=== PATIENT | female | born 1940 | race Native Hawaiian/Other Pacific Islander ===

== ENCOUNTER → 2016-11-06 | Outpatient (CLI) | payer OTHER, MEDICAID | LOC: BHFA 09:00 | PROVIDERS: ATTEND Internal Medicine Cardiovascular Disease | DX: I25.10 Atherosclerotic heart disease of native coronary artery without angina pectoris (principal); I10 Essential (primary) hypertension | CPT/HCPCS: 78452; 93017; A9500 ==

== ENCOUNTER 2016-12-31 08:00 | Inpatient (IN) | payer OTHER, MEDICAID ==
[~2016-12-31 08:00] MED LIST: ceFAZolin 2 GM/DEXTROSE 100 ML IV ONE
[2016-12-31] MEDS ORDERED: BUPIVACAINE 0.5% 30 ML SDV ONE (08:22)
[2016-12-31] MEDS ORDERED: THROMBIN (RECOMBINANT) 20,000 UNIT SPRAY TP ONE (08:22)
[2016-12-31] MEDS ORDERED: SKIN ADHESIVE (DERMABOND) 1 EACH TP ONE (08:22)
[2016-12-31] MEDS ORDERED: LIDOCAINE 1% 5 ML SDV ID PRN (08:38)
[2016-12-31] MEDS ORDERED: LR 1,000 ML IV ONE (08:38)
[2016-12-31] MEDS ORDERED: LIDOCAINE 1% 2 ML INJ ONE (09:30)
[2016-12-31] MEDS ORDERED: CEFAZOLIN 2 GM/DEXTROSE/100 ML BAG IV ONE (09:30)
[2016-12-31] MEDS ORDERED: MIDAZOLAM 2 MG/2 ML VIAL ONE (09:55)
[2016-12-31] MEDS ORDERED: REMIFENTANIL HCL 1 MG VIAL ONE (09:55)
[2016-12-31] MEDS ORDERED: DEXAMETHASONE 4 MG/ML VIAL ONE ×2 (09:56)
[2016-12-31] MEDS ORDERED: PROPOFOL/EMULSION 500 MG/50 ML BOTTLE IV ONE (09:56)
[2016-12-31] MEDS ORDERED: LIDOCAINE 2% 100 MG/5 ML SYR ONE (09:56)
[2016-12-31] MEDS ORDERED: HEPARIN 10,000 UNIT/10 ML MDV ONE (09:56)
[2016-12-31] MEDS ORDERED: fentaNYL 100 MCG/2 ML INJ ONE ×2 (09:56→12:00)
[2016-12-31] MEDS ORDERED: ROCURONIUM 50 MG/5 ML VIAL ONE (09:56)
[2016-12-31] MEDS ORDERED: PHENYLEPHRINE 10 MG/ML SDV ONE (09:58)
[2016-12-31] MEDS ORDERED: LABETALOL HCL 5 MG/ML 20 ML MDV ONE (10:09)
[2016-12-31] MEDS ORDERED: PROTAMINE SULFATE 50 MG/5 ML VIAL IVP ONE (11:25)
[2016-12-31] MEDS ORDERED: ONDANSETRON 4 MG/2 ML VIAL IVP PRN (12:17)
[2016-12-31] MEDS ORDERED: NALOXONE HCL 0.4 MG/ML INJ IVP PRN (12:17)
[2016-12-31] MEDS ORDERED: OXYCODONE/APAP 5/325 TAB PO PRN (12:17)
--- NOTE | 2016-12-31 12:17 | POSTOPPROG ---
Post Op Note Date of Operation: 12/31/16 Surgeon: Ernesto Luu [place] Representative: Sharon Kelly PA-C, RAISA Lockhart MS, Trent Martin MS Anesthesiologist: Cali Dove MD Anesthesia: GET(General Endotracheal) Pre-op Diagnosis: Carotid stenosis Post-op Diagnosis: same Procedure: Left carotid endarterectomy Findings: tight calcified plaque, no eeg changes, shunt used Inf/Abcess present in the surg proc area at time of surgery?: No EBL: Minimal Complications: none Drains: Other (none) Specimen(s): none
[2016-12-31] MEDS ORDERED: HYDROCODONE/APAP 5/325 TAB PO PRN (12:22)
[2016-12-31] MEDS ORDERED: NS W/ 20 KCl/L 1,000 ML IV SCH (12:30)
[2016-12-31] MEDS ORDERED: D5W 1/2 NS 1,000 ML IV SCH (12:30)
[2016-12-31] MEDS ORDERED: ENALAPRILAT DIHYDRATE 1.25 MG/ML VIAL IVP PRN (14:31)
[2016-12-31] MEDS: amLODIPine BESYLATE 5 MG TAB PO SCH (15:11)
[2016-12-31] MEDS: CARVEDILOL 6.25 MG TAB PO SCH (17:47)
--- NOTE | 2016-12-31 18:56 | SOAPPROG ---
[facility] Progress Note Assessment/Plan: Assessment: POSTOP LEFT CAROTID ENDARTERECTOMY. DOING WELL WITH NO PROBLEMS NEURO EXAM INTACT WOUND OKAY / VITAL SIGNS STABLE Plan: HOME IN THE A.M. 12/31/16 18:54 Objective: Vital Signs Temp Pulse Resp BP Pulse Ox 36.6 C 89 14 120/42 L 96 12/31/16 13:55 12/31/16 18:00 12/31/16 18:00 12/31/16 18:00 12/31/16 18:00 12/30/16 12/31/16 01/01/17 05:59 05:59 05:59 Intake Total 1514 Output Total 1010 Balance 504 ICD10 Worksheet Patient Problems: Problems Problem Status Onset Carotid stenosis, left Acute - ICD10 Problem Qualifiers (1) Carotid stenosis, left
[2016-12-31] MEDS ORDERED: ATORVASTATIN CALCIUM 10 MG TAB PO SCH (21:00)
[2016-12-31] MEDS ORDERED: NON-FORMULARY NEW DRUG (Simvastatin [Zocor] 20 MG) PO SCH (21:00)
[2016-12-31] MEDS: FLUOROMETHOLONE 5 ML OPHT.BTL EACHEYE SCH (21:07)
[2017-01-01 04:05] LABS: HEMATOCRIT 39.8 % (38.0-47.0); HEMOGLOBIN 12.9 g/dL (12.6-16.3)
[2017-01-01 04:40] LABS: ANION GAP 9 mEq/L (8-16); CALCIUM 9.4 mg/dL (8.5-10.4); CARBON DIOXIDE 20 mEq/l (22-31); CHLORIDE 110 mEq/L (97-110); CREATININE 0.5 mg/dL (0.6-1.0); GLOMERULAR FILTRATION RATE > 60; GLUCOSE 145 mg/dL (70-100); POTASSIUM 4.5 mEq/L (3.5-5.2); SODIUM 139 mEq/L (134-144)
[2017-01-01 04:52] VITALS: TEMP 97.8
[2017-01-01] MEDS ORDERED: LEVOTHYROXINE 150 MCG TAB PO SCH (06:00)
[2017-01-01] MEDS: amLODIPine BESYLATE 5 MG TAB PO SCH (08:25)
[2017-01-01] MEDS: CARVEDILOL 6.25 MG TAB PO SCH (08:25)
[2017-01-01] MEDS: FLUOROMETHOLONE 5 ML OPHT.BTL EACHEYE SCH (08:26)
[2017-01-01] MEDS ORDERED: ATORVASTATIN CALCIUM 40 MG TAB PO SCH (09:00)
[2017-01-01] MEDS ORDERED: ASPIRIN 81 MG CHEWABLE TAB PO SCH (09:00)
[2017-01-01] MEDS ORDERED: buPROPion XL 150 MG TAB PO SCH (09:00)
--- NOTE | 2017-01-01 09:00 | GOP ---
[f rep st] OPERATIVE REPORT DATE OF OPERATION: SURGEON: Ernesto Luu MD CAKE PULLER: Sharon Kelly, ENEIDA. ANESTHESIOLOGIST: Dr. Dove. . PREOPERATIVE DIAGNOSIS: Critical left carotid stenosis. POSTOPERATIVE DIAGNOSIS: Critical left carotid stenosis. PROCEDURE PERFORMED: Left carotid endarterectomy with EEG monitoring. Cervical lymph node biopsy. FINDINGS: Patient was found to have a very tight localized stenosis of the origin of the internal carotid artery with a large calcified plaque creating a greater than 80% stenosis. DESCRIPTION OF PROCEDURE: The patient was taken to the operating room where she received satisfactory general endotracheal anesthesia by Dr. Dove. She was systemically heparinized prior to induction of anesthesia. She was prepped and draped in the usual sterile fashion. Incision was made along the anterior border of the sternocleidomastoid muscle and carried down through the platysma and then the superficial fascia. The carotid arterial tree was dissected free and controlled with vessel loops. This required division of the facial vein and removal of a cervical lymph node. The common carotid, internal carotid and external carotid arteries were all controlled with vessel loops as was the inferior thyroid artery. After adequate control was obtained, the patient was given additional heparin. After adequate circulation time, the vessels were occluded. She had no EEG changes. An incision was made in the common carotid artery and extended up through the very tight plaque into the internal carotid artery until a good open lumen was found. There was adequate backflow from the internal carotid and no EEG changes. An expeditious endarterectomy was then done removing the localized plaque with a good feathered end. At that point, a shunt was placed in the artery to restore flow, and again, there were no EEG changes. All debris was removed from the artery. It was irrigated clear, and then it was closed with a Dacron patch and a running Hemashield 7 suture. The wound was irrigated. Hemostasis was assured. The heparin was reversed with protamine. The wound was sprayed with some topical thrombin and closed in layers using 3-0 Vicryl for the cervical fascia, 3-0 Vicryl for the platysma, and a 4-0 Monocryl subcuticular stitch for the skin. The superficial layers were infiltrated with 0.5% Marcaine. There were no complications. She tolerated the procedure well and was taken to the recovery room in good condition. She awoke neurologically intact and following commands. again ther were no EEG changes during the entire procedure /[id number]/MODL MTDD
--- NOTE | 2017-01-01 10:48 | SOAPPROG ---
SOAP Progress Note Assessment/Plan: Assessment/Plan: 76 Y F s/p CEA, POD#1. Doing well. Neuro exam stable. Minimal swelling. Minimal pain. BP improved. D/c to home today with outpatient f/u. S: not much pain. oob in chair. no weakness O: nad, alert inc cdi, min swelling ctab rrr abd soft maex4 neuro stable. 01/01/17 10:58 Objective: Vital Signs Temp Pulse Resp BP Pulse Ox 36.6 C 96 15 168/58 H 89 L 01/01/17 04:00 01/01/17 08:00 01/01/17 08:00 01/01/17 08:00 01/01/17 08:00 Laboratory Results 01/01/17 03:54 01/01/17 03:54 12/31/16 01/01/17 01/02/17 05:59 05:59 05:59 Intake Total 2807 Output Total 1010 1 Balance 1797 -1 ICD10 Worksheet Patient Problems: Problems Problem Status Onset Carotid stenosis, left Acute
[2017-01-01 11:10] VITALS: BP 105/55; PULSE 83; RESP 19; O2SAT 94
[2017-01-02] MEDS ORDERED: ENOXAPARIN 40 MG/0.4 ML SYR SC SCH (09:00)
--- NOTE | 2017-01-20 12:16 | GDS ---
[f rep st] DISCHARGE SUMMARY DISCHARGE DIAGNOSIS: Critical left carotid stenosis. PROCEDURES: Left carotid endarterectomy with EEG monitoring and cervical lymph node biopsy. INTRAOPERATIVE FINDINGS: Patient was found to have a very tight localized stenosis at the origin of the internal carotid artery with a large calcified plaque creating a greater than 80% stenosis. CONSULTATIONS: None. HOSPITAL COURSE: The patient is a 76-year-old female who was found to have severe left carotid sten osis. She underwent a left carotid endarterectomy without event. There were no EEG changes during the procedure. She woke up, moving all 4 extremities. She was initially cared for in the ICU. Patient's postoperative course was uneventful. She did remarkably well. She had some high blood pr essure readings postop and this improved with early administration of her regular home antihypertens jasmin medicines. Her neuro exam remained intact. Her pain was well controlled, and her diet was adva nced. The patient was discharged to home in stable condition on postoperative day 1 with plans for outpatient followup. /[id number]/MODL
== END 2017-01-01 13:43 | disposition home or self-care (01) | DRG 39 ==
LOC: F3N 08:00 → F2N 12:18
PROVIDERS: ADMIT Surgery; ATTEND Surgery
PROC: 03UL0JZ Supplement Left Internal Carotid Artery with Synthetic Substitute, Open Approach (ICD-10-PCS; principal; 2016-12-31 10:15)
PROC: 03CL0ZZ Extirpation of Matter from Left Internal Carotid Artery, Open Approach (ICD-10-PCS; principal; 2016-12-31 10:15)
PROC: 07B20ZX Excision of Left Neck Lymphatic, Open Approach, Diagnostic (ICD-10-PCS; principal; 2016-12-31 10:15)
DX: I65.22 Occlusion and stenosis of left carotid artery (principal); I25.10 Atherosclerotic heart disease of native coronary artery without angina pectoris; E78.5 Hyperlipidemia, unspecified; I10 Essential (primary) hypertension; F17.210 Nicotine dependence, cigarettes, uncomplicated
CPT/HCPCS: C1768; J0690; J1100; J1644; J2001; J2250; J2370; J2405; J2704; J2720; J3010; J3490

== ENCOUNTER → 2017-03-21 | Outpatient (CLI) | payer OTHER, MEDICAID | LOC: BHFA 14:00 | PROVIDERS: ATTEND Internal Medicine Cardiovascular Disease | DX: I73.9 Peripheral vascular disease, unspecified (principal) ==

== ENCOUNTER → 2017-04-07 | Outpatient (CLI) | payer OTHER, MEDICAID ==
[~2017-04-07] MED LIST changes: +IOPAMIDOL (ISOVUE 370) 100 ML BTL IV ONE; -ceFAZolin 2 GM/DEXTROSE 100 ML IV ONE
== END ==
LOC: FIMAGING 15:08
PROVIDERS: ATTEND Internal Medicine Cardiovascular Disease
DX: I83.893 Varicose veins of bilateral lower extremities with other complications (principal); I70.0 Atherosclerosis of aorta; I77.1 Stricture of artery; M53.86 Other specified dorsopathies, lumbar region
CPT/HCPCS: 75635; Q9967

== ENCOUNTER 2017-06-10 06:08 | Inpatient (IN) | payer OTHER, MEDICAID ==
[2017-06-10] MEDS ORDERED: ceFAZolin 2 GM/DEXTROSE 100 ML IV ONE (06:35)
[2017-06-10] MEDS ORDERED: LR 1,000 ML IV ONE (06:59)
--- NOTE | 2017-06-10 07:15 | PDHPUP ---
History & Physical Update H&P update statement: This history and physical update is based on an assessment of the patient which was completed after admission or registration (within 24 hours), but prior to the surgery/procedure. H&P update: H&P reviewed & patient examined, no change in patient's condition since H&P completed
[2017-06-10 07:24] LABS: INR 1.05 (0.83-1.16); PROTIME(PATIENT) 13.6 SEC (12.0-15.0)
[2017-06-10 07:25] LABS: APTT 33.7 SEC (23.0-38.0)
--- NOTE | 2017-06-10 07:35 | PDANEPAE ---
ANE Past Medical History - Cardiovascular History Hx Hypertension: Yes Hx Arrhythmias: No Hx Chest Pain: No Hx Coronary Artery / Peripheral Vascular Disease: Yes Hx CHF / Valvular Disease: Yes Hx Palpitations: No Cardiovascular History Comment: Bilat claudication -L "is worse-but feels it on R". cad with stents x4 2002. right cea. pvd. hyperlipidemia - Pulmonary History Hx COPD: No Hx Asthma/Reactive Airway Disease: No Hx Recent Upper Respiratory Infection: No Hx Oxygen in Use at Home: No Hx Sleep Apnea: No Sleep Apnea Screening Result - Last Documented: Negative Pulmonary History Comment: smoked x20 yrs-quit 03-20-17. "very little SOB w/ strenuous activity or walking fast" - Neurologic History Hx Cerebrovascular Accident: No Hx Seizures: No Hx Dementia: No - Endocrine History Hx Diabetes: Yes Endocrine History Comment: type 2 -controls w/diet only-Metformin stopped by pt- BS runs too low. hypothyroidism - Renal History Hx Renal Disorders: No - Liver History Hx Hepatic Disorders: No - Neurological & Psychiatric Hx Hx Neurological and Psychiatric Disorders: No - Cancer History Hx Cancer: No Cancer History Comment: depression situational- sister 4 months - Congenital Disorder History Hx Congenital Disorders: No - GI History Hx Gastrointestinal Disorders: Yes Gastrointestinal History Comment: hx of bowel obstruction with surgery. reflux - Other Health History Other Health History: bilat leg pain-R leg more painful. "white blood cells taking over but no Leukemia" Dr Gunderson F/U. upper denture - Chronic Pain History Chronic Pain: No - Surgical History Prior Surgeries: L carotid entarterectomy 4-17;. tali. bowel obstuction. c- section. cardiac stents 01/10/2003. right cea ANE Review of Systems Review of Systems: - Exercise capacity METS (RN): 4 METS ANE Patient History - Allergies Allergies/Adverse Reactions: No Known Allergies Allergy (Verified 06/06/17 11:05) - Home Medications Home Medications: Aspirin [Aspirin 81mg (*)] 81 mg PO DAILY 12/25/16 [Last Taken 06/09/17] Carvedilol [Coreg (*)] 6.25 mg PO BIDMEAL 12/25/16 [Last Taken 06/10/17] Levothyroxine [Synthroid 150 mcg (*)] 150 mcg PO DAILY06 12/25/16 [Last Taken ] amLODIPine BESYLATE [Norvasc 5 mg (*)] 5 mg PO DAILY 12/25/16 [Last Taken ] Atorvastatin Calcium 06/06/17 [Last Taken 06/10/17] IRON 06/06/17 [Last Taken Unknown] Lisinopril 06/06/17 [Last Taken Unknown] Ranitidine HCl 06/06/17 [Last Taken Unknown] Zetia 06/06/17 [Last Taken 06/09/17] - NPO status NPO Since - Liquids (Date): 06/10/17 NPO Since - Liquids (Time): 05:30 NPO Since - Solids (Date): 06/09/17 NPO Since - Solids (Time): 20:00 - Smoking Hx Smoking Status: Former smoker - Family Anes Hx Family Hx Anesthesia Complications: grandson- stopped breathing and couldn't wake him up ANE Labs/Vital Signs - Vital Signs Blood Pressure: 174/75 Heart Rate: 66 Respiratory Rate: 16 O2 Sat (%): 95 Height: 157.48 cm Weight: 47.627 kg ANE Physical Exam - Airway Mallampati Score: Class 2 Mouth exam: dentures - ASA Status ASA Status: III ANE Anesthesia Plan Anesthesia Plan: general endotracheal anesthesia Lines/Monitors: arterial line
[2017-06-10] MEDS ORDERED: BUPIVACAINE 0.5% 30 ML SDV ONE (07:37)
[2017-06-10] MEDS ORDERED: THROMBIN (BOVINE) 20,000 UNIT VIAL TP ONE (07:37)
[2017-06-10] MEDS ORDERED: MIDAZOLAM 2 MG/2 ML VIAL ONE (07:55)
[2017-06-10] MEDS ORDERED: PROPOFOL 200 MG/20 ML VIAL ONE (07:56)
[2017-06-10] MEDS ORDERED: fentaNYL 100 MCG/2 ML INJ ONE ×2 (07:56→11:26)
[2017-06-10] MEDS ORDERED: METOCLOPRAMIDE 10 MG/2 ML VIAL ONE (08:01)
[2017-06-10] MEDS ORDERED: ROCURONIUM 50 MG/5 ML VIAL ONE (08:01)
[2017-06-10] MEDS ORDERED: PHENYLEPHRINE HCL 100 MCG/ML SYR ONE (08:01)
[2017-06-10] MEDS ORDERED: HEPARIN 10,000 UNIT/10 ML MDV ONE (09:46)
[2017-06-10] MEDS ORDERED: PROTAMINE SULFATE 50 MG/5 ML VIAL IVP ONE (11:44)
[2017-06-10] MEDS ORDERED: epHEDrine SULFATE 10 MG/ML SYR ONE (11:53)
[2017-06-10] MEDS ORDERED: HYDROmorphONE/DILAUDID 1 MG/ML INJ IVP PRN (12:24)
[2017-06-10] MEDS ORDERED: OXYCODONE/APAP 5/325 TAB PO PRN (12:24)
[2017-06-10] MEDS ORDERED: NALOXONE HCL 0.4 MG/ML INJ IVP PRN (12:26)
[2017-06-10] MEDS ORDERED: fentaNYL 100 MCG/2 ML INJ IVP PRN (12:26)
[2017-06-10] MEDS ORDERED: PROMETHAZINE HCL 25 MG/ML INJ IVP PRN ×2 (12:26→19:31)
[2017-06-10] MEDS ORDERED: LR 500 ML IV PRN (12:26)
--- NOTE | 2017-06-10 12:28 | POSTANESTH ---
Post Anesthetic Evaluation Cardiovascular Status: Normal, Stable, Similar to Pre-Op Cond Respiratory Status: Normal, Stable Level of Consciousness/Mental Status: Can Participate in Eval Pain Control: Adequate, Prn Tx Ordered Nausea/Vomiting Control: Adequate, Prn Tx Ordered Complications Possibly Related to Anesthesia: None Noted
[2017-06-10] MEDS ORDERED: NS W/ 20 KCl/L 1,000 ML IV SCH (12:30)
[2017-06-10] MEDS ORDERED: IOPAMIDOL (ISOVUE-300) 100 ML BTL ONE (12:43)
[2017-06-10] MEDS: CARVEDILOL 25 MG TAB PO SCH (17:12)
[2017-06-10] MEDS: ONDANSETRON 4 MG/2 ML VIAL IVP PRN (17:50)
[2017-06-10] MEDS ORDERED: ENALAPRILAT DIHYDRATE 1.25 MG/ML VIAL IVP PRN (18:22)
--- NOTE | 2017-06-10 18:28 | POSTOPPROG ---
Post Op Note Date of Operation: 06/10/17 Surgeon: Charu Larios Anesthesia: GET(General Endotracheal) Pre-op Diagnosis: PVD, AORTIC ULCER Post-op Diagnosis: SAME Indication: PVD, ULCER Procedure: REBUILDING OF AORTA AND BIFORCATION Findings: EXCELLENT FLOW POST Inf/Abcess present in the surg proc area at time of surgery?: No Depth: Deep Incisional (Fascial) EBL: Minimal Complications: NONE
--- NOTE | 2017-06-10 18:30 | SOAPPROG ---
[facility] Progress Note Assessment/Plan: Assessment: Post aortic tube graft and kissing iliac stent placement for repair of aortic ulcer and critical biforcation stenosis. Doing well. Plan: 06/10/17 18:29 Subjective: No complaints. Semi-up in bed having dinner. Wants to be able to roll side to side while keeping legs straight when she goes to bed. Objective: Vital Signs Temp Pulse Resp BP Pulse Ox 36.2 C 69 14 176/78 H 96 06/10/17 13:27 06/10/17 18:00 06/10/17 18:00 06/10/17 18:00 06/10/17 18:00 06/09/17 06/10/17 06/11/17 05:59 05:59 05:59 Intake Total 2627 Output Total 1650 Balance 977 PT 13.6 SEC (12.0-15.0) 06/10/17 07:00 INR 1.05 (0.83-1.16) 06/10/17 07:00 Groins without hematomas. 2+ palpable pedal pulses. ICD10 Worksheet Patient Problems: Problems Problem Status Onset Carotid stenosis, left Acute
[2017-06-10] MEDS ORDERED: METOCLOPRAMIDE 10 MG/2 ML VIAL IVP PRN (19:31)
[2017-06-10] MEDS: EZETIMIBE 10 MG TAB PO SCH (19:53)
[2017-06-10] MEDS: buPROPion 100 MG TAB PO SCH (19:53)
[2017-06-10] MEDS: CYCLOSPORINE 0.05% 1 EACH BOX EACHEYE SCH (19:58)
[2017-06-10] MEDS ORDERED: CYCLOSPORINE 0.05% 1 EACH BOX EACHEYE SCH (21:00)
[2017-06-11 04:21] LABS: HEMATOCRIT 39.7 % (38.0-47.0)
[2017-06-11 04:42] LABS: ANION GAP 7 mEq/L (8-16); CALCIUM 8.6 mg/dL (8.5-10.4); CARBON DIOXIDE 23 mEq/l (22-31); CHLORIDE 102 mEq/L (97-110); CREATININE 0.7 mg/dL (0.6-1.0); GLOMERULAR FILTRATION RATE > 60; GLUCOSE 120 mg/dL (70-100); POTASSIUM 4.3 mEq/L (3.5-5.2); SODIUM 132 mEq/L (134-144)
[2017-06-11] MEDS: LEVOTHYROXINE 150 MCG TAB PO SCH (06:04)
--- NOTE | 2017-06-11 08:31 | POSTOPPROG ---
Post Op Note Date of Operation: 06/10/17 Surgeon: Ernesto Luu Visual Design Lead: Sharon Kelly Anesthesiologist: Isidro Mcmanus Anesthesia: GET(General Endotracheal) Pre-op Diagnosis: symptomatic aortoiliac atherosclerotic disease Post-op Diagnosis: same Procedure: bilateral femoral artery exposures and closures Findings: small vessels, hemostasis assured, post op pedal pulses confirmed Inf/Abcess present in the surg proc area at time of surgery?: No EBL: 50-100 Complications: none
[2017-06-11] MEDS: ASPIRIN 81 MG CHEWABLE TAB PO SCH (08:52)
[2017-06-11] MEDS: amLODIPine BESYLATE 5 MG TAB PO SCH (08:52)
[2017-06-11] MEDS: buPROPion 100 MG TAB PO SCH ×2 (08:52→22:20)
[2017-06-11] MEDS: FERROUS SULFATE 325 MG TAB PO SCH (08:52)
[2017-06-11] MEDS: CARVEDILOL 25 MG TAB PO SCH ×2 (08:52→17:07)
[2017-06-11] MEDS: ATORVASTATIN CALCIUM 10 MG TAB PO SCH (08:52)
[2017-06-11] MEDS: LISINOPRIL 10 MG TAB PO SCH (08:52)
[2017-06-11] MEDS ORDERED: NON-FORMULARY NEW DRUG (Simvastatin [Zocor] 20 MG) PO SCH (09:00)
--- NOTE | 2017-06-11 09:08 | SOAPPROG ---
SOAP Progress Note Assessment/Plan: Assessment/Plan: 77 Y F s/p B fem a. exposure and closure for aortoiliac angioplasty and stenting, POD#1. Doing well. Tolerating regular diet. Good distal pulses. Wounds intact. Arterial Studies today. OOB. PT/OT. D/c brain. Dispo: txr to med surg status. Possibly home later today if does well, but more likely tomorrow. Patient has a very supportive family and did well going home with them after her recent CEA surgery. S: see above. O: alert, eating breakfast, nad no wob rrr abd soft inc well dressed, no shadowing. good pedal pulses B 06/11/17 09:01 Objective: Vital Signs Temp Pulse Resp BP Pulse Ox 37.3 C 85 19 148/60 H 94 06/11/17 08:00 06/11/17 08:52 06/11/17 08:00 06/11/17 08:52 06/11/17 08:00 Laboratory Results 06/11/17 04:15 06/11/17 04:15 06/10/17 06/11/17 06/12/17 05:59 05:59 05:59 Intake Total 3427 Output Total 2850 Balance 577 PT 13.6 SEC (12.0-15.0) 06/10/17 07:00 INR 1.05 (0.83-1.16) 06/10/17 07:00 ICD10 Worksheet Patient Problems: Problems Problem Status Onset Carotid stenosis, left Acute
--- NOTE | 2017-06-11 09:32 | GOP ---
[f rep st] OPERATIVE REPORT DATE OF OPERATION: 06/10/2017 SURGEON: Ernesto Luu MD [employer] COUNCIL MEMBER: ENEIDA Avalos ANESTHESIOLOGIST: Dr. Mcmanus. PREOPERATIVE DIAGNOSIS: Aortoiliac stenosis. POSTOPERATIVE DIAGNOSIS: Aortoiliac stenosis. PROCEDURE PERFORMED: 1. Bilateral common femoral artery exposures for stent graft placement. 2. Bilateral femoral artery repairs. FINDINGS: Patient was found to have successful stent grafting of her abdominal aortic aneurysmal ulc eration and stenosis. At the completion of the procedure, she had excellent pedal pulses. DESCRIPTION OF PROCEDURE: The patient was taken to the operating room where she received satisfactor y general endotracheal anesthesia by Dr. Mcmanus. Placed in supine the position, prepped and draped i n usual sterile fashion. Bilateral vertical groin incisions were made and carried through the subcut aneous tissue. Hemostasis was obtained. The common femoral profunda femoris and superficial femoral arteries were all dissected free and controlled with vessel loops. After adequate exposure was achi eved, the case was turned over to Dr. Cantor for endovascular stent placement. After that was successfu lly completed, we returned for repair of the wounds. The sheaths were removed and the entry sites we re repaired directly with 5-0 Prolene suture. No patches were required. Flow was first established through the profunda femoris, and then back down the superficial femoral artery and hemostasis was as sured. Heparin was reversed with protamine. The wounds were closed in layers using 2-0 Vicryl for t he fascia, 3-0 Vicryl for the subcu and skin macario for the skin. Wounds were infiltrated with 0.5% Marcaine. She tolerated the procedure well, taken to recovery room in good condition. COMPLICATIONS: There were no complications. Had appropriate vital signs. /[id number]/MODL
[2017-06-11] MEDS: CYCLOSPORINE 0.05% 1 EACH BOX EACHEYE SCH ×3 (10:51→22:19)
[2017-06-11] MEDS ORDERED: POLYETHYLENE GLYCOL 3350 17 GM PKT PO PRN (11:36)
[2017-06-11] MEDS ORDERED: LACTULOSE 20 GM/30 ML UDCUP PO PRN (11:36)
[2017-06-11] MEDS ORDERED: BISACODYL 10 MG SUPP PR PRN (11:36)
[2017-06-11] MEDS ORDERED: MAGNESIUM HYDROXIDE 30 ML UDCUP PO PRN (11:36)
--- NOTE | 2017-06-11 12:43 | SOAPPROG ---
SOAP Progress Note Assessment/Plan: Assessment: Post aortic tube graft and kissing iliac stent placement for repair of aortic ulcer and critical biforcation stenosis. Doing well. Plan: 06/10/17 18:29 06/11/17 12:43 Continues to do well. No issues from IR standpoint. D/C per Dr. Luu's service. Subjective: No problems. No complaints. Objective: Vital Signs Temp Pulse Resp BP Pulse Ox 37.3 C 84 22 H 148/60 H 92 06/11/17 08:00 06/11/17 09:00 06/11/17 09:00 06/11/17 09:00 06/11/17 09:00 Laboratory Results 06/11/17 04:15 06/11/17 04:15 06/10/17 06/11/17 06/12/17 05:59 05:59 05:59 Intake Total 3427 Output Total 2850 500 Balance 577 -500 PT 13.6 SEC (12.0-15.0) 06/10/17 07:00 INR 1.05 (0.83-1.16) 06/10/17 07:00 groins without hematoma. pulses normal. Peripheral vascular study being done at bed side. ICD10 Worksheet Patient Problems: Problems Problem Status Onset Carotid stenosis, left Acute
--- NOTE | 2017-06-11 14:08 | CPIP ---
[f rep st] INVASIVE CARDIAC PROCEDURE DATE OF PROCEDURE: 06/11/2017 Patient was seen for arterial studies after aortofemoral endovascular stent placement. She demonstra laura excellent PVR tracings down to the metatarsal and digital levels bilaterally. Ankle-brachial ind ex is 0.98 on the right, 0.86 on the left, but her PVR tracings are essentially equal bilaterally. S he was not exercise. IMPRESSION: Excellent blood flow after aortoiliac stenting. /[id number]/MODL
[2017-06-11] MEDS: SENNOSIDES/DOCUSATE SODIUM TAB PO SCH (21:53)
[2017-06-11] MEDS: EZETIMIBE 10 MG TAB PO SCH (22:20)
[2017-06-12] MEDS ORDERED: FLU VACC QS 2017-18 (3YR+)/PF 0.5 ML SYR (FLUARIX QUAD) IM ONE (04:31)
[2017-06-12] MEDS: LEVOTHYROXINE 150 MCG TAB PO SCH (05:12)
[2017-06-12] MEDS: CARVEDILOL 25 MG TAB PO SCH ×2 (07:48→18:20)
[2017-06-12] MEDS: CYCLOSPORINE 0.05% 1 EACH BOX EACHEYE SCH ×2 (09:33→21:40)
[2017-06-12] MEDS: ASPIRIN 81 MG CHEWABLE TAB PO SCH (09:35)
[2017-06-12] MEDS: FERROUS SULFATE 325 MG TAB PO SCH (09:35)
[2017-06-12] MEDS: amLODIPine BESYLATE 5 MG TAB PO SCH (09:35)
[2017-06-12] MEDS: ATORVASTATIN CALCIUM 10 MG TAB PO SCH (09:35)
[2017-06-12] MEDS: buPROPion 100 MG TAB PO SCH ×2 (09:35→21:40)
[2017-06-12] MEDS: ENOXAPARIN 40 MG/0.4 ML SYR SC SCH (09:37)
[2017-06-12] MEDS: SENNOSIDES/DOCUSATE SODIUM TAB PO SCH ×2 (09:37→21:35)
[2017-06-12] MEDS: LISINOPRIL 10 MG TAB PO SCH (09:53)
--- NOTE | 2017-06-12 17:56 | ASMTCMCOM ---
CM Note CM Note Notes: Pt lives w/dtr and grand dtr, PT recommending hc, CM will discuss with pt in am Date Signed: 06/12/2017 05:55 PM Electronically Signed By:Zainab Crockett RN
--- NOTE | 2017-06-12 18:29 | SOAPPROG ---
SOAP Progress Note Assessment/Plan: Assessment: 77 yo female POD #2 s/p bilateral femoral artery exposure and closure for aortoiliac angioplasty and stenting Recovering well. Tolerating regular diet Wounds intact without evidence of infection or poor healing. Good DP pulses Dispo: to home today S: Pt has no complaints today. Her pain is controlled. She is tolerating a regular diet without N/V. Ready to go home O: Pt lying in bed, NAD Incisions C/D/I with macario in place RRR No increased WOB, lungs CTAB 2+ dp pulses bilaterally Objective: Vital Signs Temp Pulse Resp BP Pulse Ox 37.2 C 85 16 133/53 H 83 L 06/12/17 16:00 06/12/17 16:00 06/12/17 16:00 06/12/17 18:20 06/12/17 16:00 Laboratory Results 06/11/17 04:15 06/11/17 04:15 06/11/17 06/12/17 06/13/17 05:59 05:59 05:59 Intake Total 3427 300 Output Total 2850 1000 125 Balance 577 -700 -125 PT 13.6 SEC (12.0-15.0) 06/10/17 07:00 INR 1.05 (0.83-1.16) 06/10/17 07:00 ICD10 Worksheet Patient Problems: Problems Problem Status Onset Carotid stenosis, left Acute
[2017-06-12] MEDS: EZETIMIBE 10 MG TAB PO SCH (21:40)
[2017-06-13] MEDS: LEVOTHYROXINE 150 MCG TAB PO SCH (06:20)
[2017-06-13] MEDS: ONDANSETRON 4 MG/2 ML VIAL IVP PRN (06:22)
[2017-06-13 07:39] VITALS: BP 117/50; PULSE 70; RESP 18; TEMP 97.6; O2SAT 96
[2017-06-13] MEDS: FERROUS SULFATE 325 MG TAB PO SCH (08:55)
[2017-06-13] MEDS: amLODIPine BESYLATE 5 MG TAB PO SCH (08:55)
[2017-06-13] MEDS: buPROPion 100 MG TAB PO SCH (08:55)
[2017-06-13] MEDS: ATORVASTATIN CALCIUM 10 MG TAB PO SCH (08:55)
[2017-06-13] MEDS: ASPIRIN 81 MG CHEWABLE TAB PO SCH (08:55)
[2017-06-13] MEDS: CARVEDILOL 25 MG TAB PO SCH (08:55)
[2017-06-13] MEDS: LISINOPRIL 10 MG TAB PO SCH (08:55)
[2017-06-13] MEDS: ENOXAPARIN 40 MG/0.4 ML SYR SC SCH (08:56)
[2017-06-13] MEDS: CYCLOSPORINE 0.05% 1 EACH BOX EACHEYE SCH (09:09)
--- NOTE | 2017-06-13 10:03 | SOAPPROG ---
SOAP Progress Note Assessment/Plan: Assessment: 77 yo female POD #3 s/p bilateral femoral artery exposure and closure for aortoiliac angioplasty and stenting Blood sugar in 200s today. Hospitalist consulted. Recovering well. Tolerating regular diet Wounds intact without evidence of infection or poor healing. Good DP pulses Dispo: to home today after hospitalist consult and recs for bs control. S: Pt has no complaints today. Her pain is controlled. She is tolerating a regular diet without N/V. Ready to go home O: Pt lying in bed, NAD Incisions C/D/I with macario in place RRR No increased WOB, lungs CTAB 2+ dp pulses bilaterally Objective: Vital Signs Temp Pulse Resp BP Pulse Ox 36.4 C 70 18 117/50 L 96 06/13/17 07:36 06/13/17 07:36 06/13/17 07:36 06/13/17 07:36 06/13/17 07:36 Laboratory Results 06/11/17 04:15 06/11/17 04:15 06/12/17 06/13/17 06/14/17 05:59 05:59 05:59 Intake Total 300 500 Output Total 1000 425 Balance -700 75 PT 13.6 SEC (12.0-15.0) 06/10/17 07:00 INR 1.05 (0.83-1.16) 06/10/17 07:00 ICD10 Worksheet Patient Problems: Problems Problem Status Onset Carotid stenosis, left Acute
[2017-06-13] MEDS: SENNOSIDES/DOCUSATE SODIUM TAB PO SCH (10:14)
[2017-06-13] MEDS ORDERED: metFORMIN HCL 500 MG TAB PO SCH (10:30)
--- NOTE | 2017-06-13 10:38 | PDIAF ---
- Diagnosis Diagnosis: Arterial disease Code Status: Full Code - Medication Management Discharge Medications: Medications to Continue on Transfer Aspirin [Aspirin 81mg (*)] 81 mg PO DAILY 12/25/16 [Last Taken 06/09/17] Levothyroxine [Synthroid 150 mcg (*)] 150 mcg PO DAILY06 12/25/16 [Last Taken ] amLODIPine BESYLATE [Norvasc 5 mg (*)] 5 mg PO DAILY 12/25/16 [Last Taken ] Ezetimibe [Zetia 10 MG (*)] 10 mg PO HS 06/06/17 [Last Taken 06/09/17] Ferrous Sulfate [Ferrous Sulf 325 MG (*)] 325 mg PO DAILY 06/06/17 [Last Taken Unknown] Lisinopril [Zestril 10 mg (*)] 10 mg PO DAILY 06/06/17 [Last Taken 06/10/17] Carvedilol [Coreg (*)] 25 mg PO BIDMEAL 06/10/17 [Last Taken 06/10/17] Simvastatin [Zocor] 20 mg PO DAILY 06/10/17 [Last Taken 06/10/17] buPROPion [Wellbutrin 100mg (*)] 100 mg PO BID 06/10/17 [Last Taken 06/10/17] cycloSPORINE 0.05% [Restasis Opht Drops(*)] 1 drop EACHEYE BID 06/10/17 [Last Taken 06/09/17 21:00] oxyCODONE/APAP 5/325 [Percocet 5/325 (*)] 1 - 2 tab PO Q4 PRN #30 tab 06/11/17 [ Last Taken Unknown] Metformin HCl [Fortamet] 500 mg PO DAILY #30 tab.osm.[id number] 06/13/17 [Last Taken Unknown] Discharge Medications: Refer to the Discharge Home Medication list for PRN reason. - Orders Services needed: Home Care, Physical Therapy Home Care Face to Face: I certify that this patient was under my care and that I had the required [id number] encounter meeting the encounter requirements on the discharge day. My findings support the fact that the patient is homebound as defined in Home Care Face to Face Continued: CMS Chapter 7 Medicare Benefits Manual 30.1.1 , The condition of the patient is such that there exists a normal inability to leave home and consequently, leaving home would require a considerable and taxing effort. Diet Recommendation: no restrictions on diet Diet Texture: Regular Texture Diet - Follow Up Care Current Providers and Referrals: Doctor Not,On Staff, MD [Primary Care Provider] - Ernesto Luu MD [Medical Doctor] - follow up in 2 weeks
--- NOTE | 2017-06-13 10:59 | ASMTCMCOM ---
CM Note CM Note Notes: Spoke w/pt and dtr, PT recommending homecare but pt declines as she will not be homebound. Advised pt if feels she needs it, can have PCP order, OT cleared pt for home. Will dc home w/support of family, CM available for any changes. Date Signed: 06/13/2017 10:58 AM Electronically Signed By:Zainab Crockett RN
[2017-06-13 11:20] LABS: HEMOGLOBIN A1C 6.5 % (4.0-6.0)
--- NOTE | 2017-06-13 11:21 | GCON ---
[f rep st] CONSULTATION DATE OF CONSULTATION: 06/13/2017 REFERRING PHYSICIAN: Ernesto Luu MD REASON FOR CONSULTATION: Medical management of diabetes. HISTORY OF PRESENT ILLNESS: The patient is a 77-year-old female with a history of a left carotid endarterectomy, coronary artery disease, hyperlipidemia, who was admitted to the hospital for treatment of claudication secondary to peripheral vascular disease and aortic ulcer. She was initially seen and evaluated by Dr. Charu Larios, and had rebuilding of the aorta and bifurcation. Subsequently, she was seen by Dr. Luu, and on June 11 she had bilateral common femoral artery exposures for graft placement, and also femoral artery repairs. She has done very well with surgery. Her pain is markedly better. During her stay it was noted that her glucoses were elevated. The surgical team requested further evaluation of this. In talking with the patient, she says she is aware that she has diabetes. She had been on metformin in the past , but stopped 2-3 years ago due to low glucoses. She also is very careful with her diet. During my interview, she is having no pain, and the plan is for her to go home today. PAST MEDICAL HISTORY: 1. Coronary artery disease. 2. Hyperlipidemia. 3. Hypertension. 4. Coronary artery stent. 5. Bilateral carotid endarterectomies. 6. 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 7. Known diabetes. 8. Peripheral artery disease. FAMILY HISTORY: Her father had a heart attack at age 60 and a stroke at age 70. SOCIAL HISTORY: She has 4 children. She quit smoking in February of this year. She occasionally drinks alcohol. She lives with her granddaughter. She is overall independent. ALLERGIES: No known allergies. MEDICATIONS: Wellbutrin 100 mg p.o. twice daily, Restasis 1 drop each eye twice daily, Norvasc 5 mg daily, Zocor 20 mg daily, Synthroid 150 mcg daily, iron sulfate 325 mg daily, Coreg 25 mg p.o. twice daily, aspirin 81 mg daily, lisinopril 10 mg daily, Zetia 10 mg p.o. at bedtime, Percocet 1-2 tabs q.4 hours p.r.n. REVIEW OF SYSTEMS: A 10-point review of system was performed, was negative other than pertinent positives in HPI and past medical history. PHYSICAL EXAM: GENERAL: The patient is a 77-year-old female, who appears to be in fair health. VITAL SIGNS: Blood pressure is 117/50, pulse is 70, respiratory rate is 18, O2 sats on 2 L are 96%, temperature 36.4 Celsius. EYES : Pupils are equal and reactive. EOMs are intact. No conjunctival injection noted. ENT: Normal ears. Hearing intact. Normal lips, teeth. Oral airways moist. NECK: Trachea is midline. CARDIOVASCULAR: She is in a regular rate and rhythm. No murmurs, rubs, or gallops noted. Feet are warm and dry. She has palpable pedal pulses, but most noted on the PT area. CHEST: Lungs normal respiratory effort. Clear without wheezing, rales, or rhonchi. ABDOMEN: Soft , nontender. SKIN: Warm, dry. MUSCULOSKELETAL: Equal in upper extremity strength. PSYCHIATRIC: She is alert and oriented. Normal mood and affect. Normal judgment, insight, and normal memory. LABORATORY DATA: Data reviewed. Chemistry shows a sodium of 132, potassium 4.3 , BUN 6, creatinine 0.7. Glucose was 120 this morning, later today it is at 220. Hemoglobin is 13, hematocrit is 39.7. Coags show a pro-time of 13.6, INR of 1.06, PTT of 33.7. ASSESSMENT/PLAN: 1. Diabetes types 2. The patient is well aware that she is diabetic, but has suffered from low blood sugar. Will start her on low-dose metformin. I explained to the patient and her daughter to have her check her glucoses in the morning. If her glucose is less than 120, to hold it because she has suffered from hypoglycemia. Also recommend that she get a hemoglobin A1c with her primary care provider. She is motivated to continue an ADA diet. 2. Postop day #3, status post bilateral femoral artery exposure and closure for aorta iliac angioplasty and stent. She is doing markedly better. Further follow up with Dr. Luu. 3. Hypertension. Coreg and lisinopril have been resumed. 4. Hyperlipidemia. Statin resumed. 5. Code Status: Do not resuscitate. 6. Length of Stay: She is currently to be discharged today by the surgical team. Thank you for this consultation. /[id number]/MODL MTDD
--- NOTE | 2017-06-13 11:51 | GCON ---
[f rep st] CONSULTATION REFERRING PHYSICIAN: Ernesto Luu MD REASON FOR CONSULTATION: Medical management of diabetes. HISTORY OF PRESENT ILLNESS: The patient is a 77-year-old female with a history of diabetes type 2, d iet controlled; coronary artery disease; hyperlipidemia; hypertension; and bilateral claudication, wh o was admitted by the surgical team for treatment of her claudication. She is postop day #3 for a bi lateral femoral artery exposure and closure for aortoiliac angioplasty and stenting. She was having significant pain with walking. This has since resolved with this procedure. She has a history of kno wn diabetes. She had stopped taking metformin approximately 2-3 years ago because of low blood sugar s. Stated during my interview she is feeling very well. The plan is for her to be discharged home a fter her glucoses are further evaluated. PAST MEDICAL HISTORY: 1. Coronary artery disease. 2. Hyperlipidemia. 3. Hypertension. 4. Bilateral carotid endarterectomies. 5. Stent placement. 6. 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 7. Diabetes, diet controlled. 8. Excisional biopsy of a cervical lymph node. SOCIAL HISTORY: She has 4 children. She lives with her granddaughter. She quit smoking in February of this year. She occasionally drinks alcohol. FAMILY HISTORY: Her father had a heart attack at age 60 and a stroke at 70. ALLERGIES: No known allergies. MEDICATIONS: Include amlodipine 5 mg daily, aspirin 81 mg daily, atorvastatin 40 mg daily, Coreg 25 mg daily, Synthroid 150 mcg daily, lisinopril 10 mg daily, Zetia 10 mg daily, and ranitidine 150 mg d aily. REVIEW OF SYSTEMS: A 10-point review of systems was performed. Any pertinent positives are in the H PI and past medical history. PHYSICAL EXAM: GENERAL: The patient is a female who appears to be in fair health. VITAL S IGNS: Blood pressure is 117/50. Heart rate is 70. Respiratory rate is 18. O2 sats on 2 L are 96%. Temperature is 36.4 Celsius. HEENT: Eyes: Pupils are equal and reactive. EOMs are intact. ENT: Normal ears. Hearing intact. Normal lips, teeth. Oral airway is moist. NECK: Trachea is midlin e. CARDIOVASCULAR: Regular rate and rhythm. No murmurs, rubs, or gallops noted. She has a palpabl e PT, pedal pulses. CHEST: Lungs include normal respiratory effort, clear, without wheezing, rales, or rhonchi. ABDOMEN: Soft, nontender. SKIN: No rashes, ulcer. Warm, dry. MUSCULOSKELETAL: Equa l in upper/lower extremity strength. PSYCHIATRIC: She is alert and oriented. Normal mood, affect. Normal judgment, insight, and normal memory. LABORATORY DATA: Reviewed. A chemistry panel was performed, which showed a sodium of 132, potassium 4.3, BUN of 6, creatinine 0.7. Glucose this morning was 220. Hemoglobin 13, hematocrit 39.7. Coags show a pro time of 13.6, INR of 1.05, PTT 33.7. ASSESSMENT/PLAN: 1. Diabetes type 2. Glucoses are elevated at discharge. I suspect this is mostly stress-induced. She has a glucometer at home. She will check her glucoses daily. I have started her on low-dose met formin. If her glucoses become less than 120, to stop it. In addition, a hemoglobin A1c has been se nt. Further followup with her primary care provider. 2. Claudication, postop day #3. She had a bilateral femoral artery exposure and closure for iliac a ngioplasty and stenting. She is doing much better with this procedure and overall feeling better. 3. Coronary artery disease, on aspirin, beta mary ann, and EVERARDO inhibitor. 4. Hypothyroidism, on Synthroid. 5. Hyperlipidemia, on statin. 6. Code status: Do not resuscitate. 7. Length of stay: She will be discharged today after my evaluation and further followup with her [facility] care provider. Thank you for this consultation. /[id number]/MODL
--- NOTE | 2017-06-13 18:07 | ASDISCHSUM ---
Discharge Information Plan Status:Home with No Needs Medically Cleared to Leave: Discharge Date:06/13/2017 12:43 PM CM D/C Disposition:Home, Routine, Self-Care ADT D/C Disposition:Home, Routine, Self-Care Projected Discharge Date:06/13/2017 12:43 PM Transportation at D/C:Family Discharge Delay Reason: Follow-Up Date:06/13/2017 12:43 PM Discharge Slot: Final Diagnosis: Placement Information Patient Contact Information Contact Name:FAITH Relationship:Daughter Address:[address] Work Phone: City:[facility] Phone: [facility]/Zip Code:[place] [address] Email: Financial Information Financial Class: Primary Plan Desc:MEDICARE INPATIENT Primary Plan Number:[id number] Secondary Plan Desc:MED[place] Secondary Plan Number:[id number] Assessment Information [facility] CM Progress Note CM Note CM Note Notes: Pt lives w/dtr and grand dtr, PT recommending hc, CM will discuss with pt in am Date Signed: 06/12/2017 05:55 PM Electronically Signed By:Zainab Crockett RN [facility] CM Progress Note CM Note CM Note Notes: Spoke w/pt and dtr, PT recommending homecare but pt declines as she will not be homebound. Advised pt if feels she needs it, can have PCP order, OT cleared pt for home. Will dc home w/support of family, CM available for any changes. Date Signed: 06/13/2017 10:58 AM Electronically Signed By:Zainab Crockett RN Intervention Information Intervention Type:*IM-Signed Date of Service:06/13/2017 10:36 AM Patient Type:Inpatient Staff Member:Leslie Abraham Hours: Discipline: Severity: Comment:
== END 2017-06-13 12:43 | disposition home or self-care (01) | DRG 269 ==
LOC: FIMAGING 06:08 → F2N 12:22 → F3E 06-11 13:14
PROVIDERS: ADMIT Surgery; ATTEND Surgery
DX: I71.4 Abdominal aortic aneurysm, without rupture (principal); I35.0 Nonrheumatic aortic (valve) stenosis; I10 Essential (primary) hypertension; E78.5 Hyperlipidemia, unspecified; E11.9 Type 2 diabetes mellitus without complications; Z79.84 Long term (current) use of oral hypoglycemic drugs; I73.9 Peripheral vascular disease, unspecified; Z66 Do not resuscitate; Z23 Encounter for immunization
CPT/HCPCS: 97116-GP; 97161-GP; 97165-GO; 97535-GO; C1725; C1769; C1876; C1894; G0008; G8978-GP-CI; G8979-GP-CI; G8987-GO-CK; G8988-GO-CI; J0690; J1644; J1650; J2250; J2370; J2405; J2704; J2720; J2765; J3010; Q9967

== ENCOUNTER → 2018-05-19 | Outpatient (CLI) | payer OTHER, MEDICAID | LOC: BHLMT 10:30 | PROVIDERS: ATTEND Internal Medicine Cardiovascular Disease | DX: I65.22 Occlusion and stenosis of left carotid artery (principal); I73.9 Peripheral vascular disease, unspecified; I25.10 Atherosclerotic heart disease of native coronary artery without angina pectoris; I10 Essential (primary) hypertension; E78.5 Hyperlipidemia, unspecified; Z87.891 Personal history of nicotine dependence; Z95.5 Presence of coronary angioplasty implant and graft | CPT/HCPCS: 93005-PO ==

== ENCOUNTER → 2018-06-16 | Outpatient (CLI) | payer OTHER, MEDICAID | LOC: BHLMT 09:15 | PROVIDERS: ATTEND Internal Medicine Cardiovascular Disease | DX: I65.22 Occlusion and stenosis of left carotid artery (principal) | CPT/HCPCS: 93880-PO ==

== ENCOUNTER → 2018-08-19 | Outpatient (CLI) | payer OTHER, MEDICAID | LOC: FIMAGING 09:28 | PROVIDERS: ATTEND Surgery | DX: I65.23 Occlusion and stenosis of bilateral carotid arteries (principal); I71.4 Abdominal aortic aneurysm, without rupture; J43.9 Emphysema, unspecified; Q27.8 Other specified congenital malformations of peripheral vascular system | CPT/HCPCS: 70498; 75635; Q9967; 82565-PO ==